=== PATIENT | female | born 1980 | race Caucasian/White ===

== ENCOUNTER → 2016-11-02 | Outpatient (CLI) | payer BC ==
[~2016-11-02] MED LIST: PRENTAB26 PO
== END | disposition home or self-care (01) ==
LOC: C.PAPS 10:49
PROVIDERS: ATTEND Obstetrics & Gynecology
DX: Z01.419 Encounter for gynecological examination (general) (routine) without abnormal findings (principal)

== ENCOUNTER 2017-03-14 05:29 | Day surgery (SDC) | payer BC ==
[~2017-03-14] VITALS: Ht 165.1 cm; Wt 54.5 kg
[~2017-03-14 05:29] MED LIST changes: +IBUP-1050 PO; -PRENTAB26 PO
[2017-03-14 05:50] VITALS: BP 128/67; PULSE 87; TEMP 37.1; O2SAT 98; Ht 165.1 cm; Wt 54.5 kg
[2017-03-14] MEDS ORDERED: CEFAZOLIN 2000MG IV PUSH 10 ML IV SCH (06:00)
[2017-03-14] MEDS ORDERED: LACTATED RINGER'S 1000ML 1,000 ML IV SCH (06:00)
[2017-03-14] MEDS ORDERED: ONDANSETRON INJ 2 MG/ML 2 ML VIAL ONE (06:25)
[2017-03-14] MEDS ORDERED: PROPOFOL IV EMULSION 10 MG/ML 20 ML VIAL IV ONE (06:25)
[2017-03-14] MEDS ORDERED: FENTANYL CITRATE INJ 50 MCG/1 ML 2 ML VIAL ONE (06:25)
[2017-03-14] MEDS ORDERED: MIDAZOLAM HCL 1 MG/ML 2ML VIAL ONE (06:25)
[2017-03-14] MEDS ORDERED: ATROPINE SULFATE 0.1 MG/ML 5ML SYR IV PRN (06:45)
[2017-03-14] MEDS ORDERED: ONDANSETRON INJ 2 MG/ML 2 ML VIAL IV PRN (06:45)
[2017-03-14] MEDS ORDERED: EpHEDrine SULFATE INJ 50 MG/ML AMP IV PRN (06:45)
[2017-03-14] MEDS ORDERED: CONRAY 30% 150ML BOTTLE ONE (07:02)
--- NOTE | 2017-03-14 07:08 | History & Physical Bridge Note ---
H&P Re-Evaluation Bridge Note: I have examined the patient, reviewed the History & Physical and in the interval since the performance of the History & Physical I have noted the following changes of clinical significance: No changes noted
[2017-03-14] MEDS ORDERED: BELLADONNA/OPIUM SUPP 60 MG SUPP PR ONE (08:15)
--- NOTE | 2017-03-14 08:34 | [facility] Operative Report ---
Operative Report Operative Date Mar 14, 2017. Pre-Operative Diagnosis Left ureteral and renal stones Post-Operative Diagnosis same as pre-operative Procedure(s) Performed Cystoscopy, Left Ureteroscopy, Laser Lithotripsy, Basket Stone Extraction; Left Stent Placement Surgeon Dr. Mary Cain Psychiatric Tech Surgeon(s) none Estimated Blood Loss none Findings radio-opaque distal left ureteral stone and upper pole stone Fluids 1000mL Specimens Permanent Specimen A: Left ureteral and renal stones for chemical analysis Drains 6 fr 24 centimeter double J stent Anesthesia LMA Complication(s) None Disposition Recovery Room / PACU Indications left distal and ureteral stones, did not pass with outpatient therapy. Description of Procedure Patient was given general lma anesthesia and placed in lithotomy position. Her genitals were prepped and draped in sterile fashion. Time out held with team. I placed a 21 fr rigid cystoscope to bladder. The urethra is unremarkable. The UOs are slot shape normal location. I placed a stiff wire up left ureter but wire cannot get past her left distal stone. I used a road runner next and gained access to the left kidney. I used a 5 fr to change back to the stiff wire. I used a dual lumen catheter to calibrate the left UO staying distal to radio-opque ureteral stone. I the used a flexible ureteroscope to laser the ureteral stone into about 6 pieces and used a 2.4 fr basket to remove the pieces. I then passed the scope up into the kidney. I basketed a mid calyx stone and removed it whole. I had a difficult time passing scope by her upj which has a folded over type anatomy. Once I gained access to kidney I found the largest stone int he upper pole calyx. It is radio-opque. I used the laser on dusting settings to fragment this stone into a dozen small pieces. I carefully left my wire in place and removed the scope. i placed a 6 fr 24 centimeter double J stent in the usual fashion. I emptied bladder and concluded case. I placed a belladonna and opium suppository for post-op pain. He transferred to recovery under my escort, in stable condition. Plan: Home today Pyridium for dysuria x 3 days flomax daily oral pain meds as needed stent removal 1 week ASA 1 clean contaminated case 1 minute 36 seconds fluoro ancef antibiotic pathology transcriptionist I attest to the content of the Intraoperative Record and any orders documented therein. Any exceptions are noted below.
--- NOTE | 2017-03-14 08:40 | Discharge Instructions ---
Discharge Instructions Date of Service Mar 14, 2017. Admission Reason for Admission: Left Kidney Stone Discharge Discharge Diagnosis / Problem: left ureteral and renal stones Discharge Goals Goal(s): Improve disease control Activity Recommendations Activity Limitations: resume your previous activity Lifting Limitations: none Exercise/Sports Limitations: none May Resume Sexual Activity: when tolerated Shower/Bathe: no limitations Driving or Machine Use: resume 1 day after discharge . Instructions / Follow-Up Instructions / Follow-Up stent removal in [facility] office one week take ibuprofen 600-800mg every 8 hours for mild to moderate pain, and use the narcotic for severe pain Current Hospital Diet Patient's current hospital diet: Discharge Diet Recommended Diet: Regular Diet Fluid Restriction: None Procedures Procedures Performed: Cystoscopy, Left Ureteroscopy, Laser Lithotripsy, Basket Stone Extraction; Left Stent Placement Pending Studies Studies pending at discharge: no Medical Emergencies . Who to Call and When: Medical Emergencies: If at any time you feel your situation is an emergency, please call 911 immediately. . Non-Emergent Contact Non-Emergency issues call your: Urologist ([phone]) Call Non-Emergent contact if: temperature is above 100.5 . . "Provider Documentation" section prepared by Mary Cain. . VTE Core Measure Inpt VTE Proph given/why not?: SCD's [place] Drug Monitoring Program Search Results: patient reviewed within database, no issues identified
[2017-03-14] MEDS: FENTANYL CITRATE INJ 50 MCG/1 ML 2 ML VIAL IV PRN ×4 (08:47→09:04)
--- NOTE | 2017-03-14 09:06 | Anesthesiology Progress Note ---
Anesthesia Post Op Note Date & Time Mar 14, 2017 at 09:06 Vital Signs Pain Intensity: 2 Vital Signs Past 12 Hours Date Time Temp Pulse Resp B/P (MAP) Pulse Ox O2 Delivery O2 Flow Rate FiO2 03/14/17 08:39 84 21 100 03/14/17 08:39 85 21 03/14/17 08:36 110/74 03/14/17 08:34 81 20 100 03/14/17 08:34 82 20 03/14/17 08:31 111/77 03/14/17 08:29 89 100 03/14/17 08:29 89 03/14/17 08:29 36.6 87 14 111/77 100 Oxymask 10 03/14/17 05:50 37.1 87 18 128/67 (87) 98 Room Air Notes Mental Status: alert / awake / arousable, participated in evaluation Pt Amnestic to Procedure: Yes Nausea / Vomiting: adequately controlled Pain: adequately controlled Airway Patency, RR, SpO2: stable & adequate BP & HR: stable & adequate Hydration State: stable & adequate Anesthetic Complications: no major complications apparent
[2017-03-14 09:25] VITALS: BP 107/61; PULSE 68; TEMP 36.8; O2SAT 100
[2017-03-14] MEDS ORDERED: KETOROLAC TROMETHAMINE 30 MG/ML VIAL ONE (09:40)
[2017-03-14 09:55] VITALS: BP 90/53; PULSE 71; TEMP 36.5; O2SAT 99
--- NOTE | 2017-03-14 09:57 | DIAGNOSTIC IMAGING REPORT ---
INTRAOPERATIVE KUB (7 VIEWS) CLINICAL HISTORY: Laser lithotripsy with basket extraction and stent placement COMPARISON STUDY: No previous studies for comparison. FINDINGS: 96 seconds of fluoroscopic time was utilized. 7 fluoroscopic spot images are provided for interpretation. These demonstrate placement of a left ureteral guidewire. A left-sided ureteroscope was then placed. By history, laser lithotripsy was performed. The final image demonstrates the distal pigtail of a left-sided nephroureteral stent. IMPRESSION: Intraoperative fluoroscopic spot images obtained during laser lithotripsy and stent placement Electronically signed by: Ronan Marie M.D. 03/14/2017 9:56 AM Dictated Date/Time: 03/14/2017 9:53 AM
[2017-03-14 10:25] VITALS: BP 87/56; PULSE 69; O2SAT 98
[2017-03-14 10:55] VITALS: BP 98/53; PULSE 98; TEMP 37; O2SAT 99
[2017-03-14 11:25] VITALS: BP 111/63; PULSE 104; TEMP 36.9; O2SAT 100
== END 2017-03-14 11:47 | disposition home or self-care (01) ==
LOC: C.ACU 05:29
PROVIDERS: ATTEND Urology
DX: N20.2 Calculus of kidney with calculus of ureter (principal); F41.9 Anxiety disorder, unspecified; F32.9 Major depressive disorder, single episode, unspecified; L30.9 Dermatitis, unspecified; Z79.899 Other long term (current) drug therapy

== ENCOUNTER 2017-08-15 17:04 | Emergency (ER) | payer BC, OTHER ==
[~2017-08-15] VITALS: Ht 165.1 cm; Wt 53.1 kg
[2017-08-15 17:07] VITALS: TEMP 36.7; Ht 165.1 cm; Wt 53.1 kg
[2017-08-15 17:48] VITALS: BP 146/80; PULSE 107; O2SAT 99
--- NOTE | 2017-08-15 17:49 | EMERGENCY ROOM VISIT NOTE ---
History Report prepared by Nolberto: Jaja Victoria Under the Supervision of: Dr. Sai Claudio D.O. First contact with patient: 17:10 Chief Complaint: OTHER COMPLAINT Stated Complaint: LETHARGIC, SHAKY, DIZZINESS, LOW WBC History of Present Illness The patient is a 37 year old female who presents to the Emergency Room with complaints of persistent illness starting 1 week ago. The patient has had body aches, fatigue, and fever for the past week. Her temperature was 101. She had blood tests 5 days ago which found that her white blood cell count was low. She had additional testing today which has not resulted. She is feeling shaky and dizzy. She has been SOB this afternoon. She has had headaches in the front. She last saw a doctor 5 months ago at which time she also had a low white blood cell count. She denies any sore throat, runny nose, cough, vomiting, diarrhea, chest pain, abdominal pain, neck pain, or leg pain/swelling. She has been eating and drinking well. She has a history of kidney stones. Source of History: patient Onset: 1 week ago Position: other (diffuse) Quality: other (illness) Timing: other (persistent) Associated Symptoms: + fevers, + headache, + SOB, + fatigue, No sorethroat, No cough, No neck pain, No chest pain, No vomiting, No abdominal pain, No diarrhea Note: Pt reports body aches. Review of Systems See HPI for pertinent positives & negatives. A total of 10 systems reviewed and were otherwise negative. Past Medical & Surgical Medical Problems: (1) Kidney stone Family History No pertinent family history stated. Social History Smoking Status: Never Smoker Marital Status: Housing Status: lives with family Occupation Status: employed Current/Historical Medications No Active Prescriptions or Reported Meds Allergies Coded Allergies: No Known Allergies (Unverified , 03/14/17) Physical Exam Vital Signs Date Time Temp Pulse Resp B/P (MAP) Pulse Ox O2 Delivery O2 Flow Rate FiO2 08/15/17 17:07 36.7 121 20 157/88 99 Room Air Physical Exam CONSTITUTIONAL/VITAL SIGNS: Reviewed / noted above. GENERAL: Non-toxic in appearance. INTEGUMENTARY: Warm, dry, and [place]. HEAD: Normocephalic. EYES: without scleral icterus or trauma. ENT/OROPHARYNX: clear and moist. LYMPHADENOPATHY/NECK: Is supple without lymphadenopathy or meningismus. RESPIRATORY: Lungs clear and equal. CARDIOVASCULAR: Regular rate and rhythm. GI/ABDOMEN: Soft and nontender. No organomegaly or pulsatile mass. No rebound or guarding. Normal bowel sounds. EXTREMITIES: Warm and well perfused. BACK: No CVA tenderness. NEUROLOGICAL: Intact without focal deficits. PSYCHIATRIC: Anxious appearing, tearful. MUSCULOSKELETAL: Normally developed with good muscle tone. Medical Decision & Procedures Laboratory Results Test 08/15/17 17:35 ED Course 1713: Previous medical records were reviewed. The patient was evaluated in room B2. A complete history and physical examination was performed. 1739: I reevaluated the patient. She has decided she does not want blood tests today. I discussed the results and findings with the patient. She verbalized agreement of the treatment plan. She was discharged home. Medical Decision Differentials include: Acute coronary syndrome, myocardial infarction, CVA, TIA , anemia, infection, pneumonia, UTI, pyelonephritis, poor nutrition, dehydration , electrolyte disturbance, and hypoglycemia. This is a 37-year-old female who presents to the ED with a chief complaint of not feeling well for the past week. She states that she is feeling achy and lethargic. She has had some slight fevers. The patient feels shaky. She says that she has not seen her PCP but they have been running some tests on her. She had some blood work done on Sunday and her white blood cell count was slightly low. The patient had some additional blood tests today including a Lyme, HIV test and some additional tests. She had a repeat CBC. These tests are still pending in the [facility] system. The patient was offered additional testing here today but felt that her symptoms might be related to anxiety and declined additional test. She states that she would wait for the test that have been already drawn earlier today. She was told to return if her symptoms worsen or she develops any other concerning symptoms. She was desiring to go home. The patient's physical exam did reveal tachycardia. She was also crying on exam and seemed to be emotionally distraught. Her exam was otherwise unremarkable. She denies having any chest pains, shortness of breath, abdominal pains, vomiting, diarrhea, sore throat. She did report a frontal headache. Medication Reconcilliation Current Medication List: was personally reviewed by me Blood Pressure Screening Patient's blood pressure: Elevated blood pressure Blood pressure disposition: Referred to PCP Impression Primary Impression: Aches Additional Impression: Malaise and fatigue Scribe Attestation The scribe's documentation has been prepared under my direction and personally reviewed by me in its entirety. I confirm that the note above accurately reflects all work, treatment, procedures, and medical decision making performed by me. Departure Information Dispostion Home / Self-Care Prescriptions No Active Prescriptions or Reported Meds Referrals Rodrigo Weiner M.D. (PCP) Forms HOME CARE DOCUMENTATION FORM, IMPORTANT VISIT INFORMATION, WORK / SCHOOL INSTRUCTIONS Patient Instructions My [facility] Additional Instructions Follow-up with your doctor for further care and evaluation in 1-7 days. Return to the emergency department for worsening or new symptoms or any concerns. You have been examined and treated today on an emergency basis only. This is not a substitute for, or an effort to provide, complete comprehensive medical care. It is impossible to recognize and treat all injuries or illnesses in a single emergency department visit. It is therefore important that you follow up closely with your doctor. Call as soon as possible for an appointment. Problem Qualifiers
== END 2017-08-15 17:48 | disposition home or self-care (01) ==
LOC: C.EDB 17:05
DX: R53.83 Other fatigue (principal); M79.1 Myalgia; R50.9 Fever, unspecified; Z87.442 Personal history of urinary calculi